=== PATIENT | male | born 1960 | race Caucasian/White ===

== ENCOUNTER 2019-12-29 20:21 | Emergency (ER) | payer OTHER ==
[~2019-12-29] VITALS: Ht 177.8 cm; Wt 90.0 kg
[2019-12-29] MEDS ORDERED: ORPHENADRINE CITRATE 60 MG/2 ML VIAL. IM ONE (21:45)
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
[2019-12-29] MEDS ORDERED: NAPR-683 PO (23:03)
[2019-12-29] MEDS ORDERED: CYCL-331 PO (23:03)
[2019-12-29 23:15] VITALS: BP 114/70
[2019-12-29] MEDS ORDERED: KETOROLAC 60 MG/2 ML VIAL. IM ONE (23:30)
== END 2019-12-29 23:21 | disposition home or self-care (01) ==
LOC: ER 20:21
DX: S06.0X0A Concussion without loss of consciousness, initial encounter (principal); S16.1XXA Strain of muscle, fascia and tendon at neck level, initial encounter; M25.511 Pain in right shoulder; M25.512 Pain in left shoulder; R11.0 Nausea; V89.2XXA Person injured in unspecified motor-vehicle accident, traffic, initial encounter; Y93.89 Activity, other specified; Y92.89 Other specified places as the place of occurrence of the external cause; Y99.8 Other external cause status
CPT/HCPCS: 70450; 72125; 96372; 99285; J1885; J2360